=== PATIENT | male | born 1970 | race Caucasian/White ===

== ENCOUNTER 2022-05-11 13:26 | Emergency (ER) | payer BC, OTHER ==
[~2022-05-11] VITALS: Ht 172.7 cm; Wt 74.8 kg
[~2022-05-11 13:26] MED LIST: HYDROCODON-ACE1 EA15 PO; XANAX0.5 MG PO
[2022-05-11] MEDS ORDERED: HYDROCODONE/APAP 5MG-325MG TAB PO ONE (15:15)
[2022-05-11] MEDS ORDERED: IBUPROFEN 600 MG TAB PO STA (15:30)
[2022-05-11] MEDS ORDERED: IBUPROFEN600 MG PO (16:32)
== END 2022-05-11 16:37 | disposition home or self-care (01) ==
LOC: ER 13:45
DX: M25.561 Pain in right knee (principal); X50.1XXA Overexertion from prolonged static or awkward postures, initial encounter; Y92.89 Other specified places as the place of occurrence of the external cause
CPT/HCPCS: 99283